=== PATIENT | male | born 1995 | race Caucasian/White ===

== ENCOUNTER → 2022-04-07 | Outpatient (REF) | payer OTHER ==
[~2022-04-07] MED LIST: DOXY-350 PO
[2022-04-07 13:42] LABS: SEMEN APPEARANCE OPAQUE (OPAQUE); SEMEN VISCOSITY LIQUID (LIQUID); SEMEN VOLUME 4.4 ML (2.0-5.0); SEMEN WBC >1 M/ml (<=1 M/ml); SEMEN pH 8.5 (7.0-8.0)
== END ==
LOC: M LAB REF 13:06
PROVIDERS: ATTEND Obstetrics & Gynecology Reproductive Endocrinology
DX: N46.8 Other male infertility (principal)